=== PATIENT | female | born 1975 | race African-American/Black ===

== ENCOUNTER 2022-03-08 20:26 | Inpatient (IN) | payer BC ==
[~2022-03-08] VITALS: Ht 172.7 cm; Wt 68.9 kg
--- NOTE | 2022-03-08 20:26 | NUR ---
Dr. Melendez at bedside for MSE.
[2022-03-08] MEDS ORDERED: levETIRAcetam IV 500 MG in IV DEXTROSE 5% 100 ML IV ONE (20:45)
[2022-03-08] MEDS ORDERED: LORAZEPAM 2 MG/1 ML VIAL IV ONE (20:45)
[2022-03-08 20:56] LABS: HEMATOCRIT 30.8 % (31.2-41.9); MEAN CORPUSCULAR HEMOGLOBIN 30.6 uug (24.7-32.8); MEAN CORPUSCULAR VOLUME 96.4 fL (75.5-95.3); PLATELET COUNT (AUTO) 440 K/uL (179-408)
[2022-03-08] MEDS ORDERED: LORAZEPAM 2 MG/1 ML VIAL ONE (21:01)
[2022-03-08] MEDS ORDERED: levETIRAcetam 500 MG/5 ML VIAL IV ONE (21:03)
--- NOTE | 2022-03-08 21:10 | NUR ---
Xray at bedside.
[2022-03-08 21:13] LABS: ALANINE AMINOTRANSFERASE 49 U/L (14-59); ALKALINE PHOSPHATASE 185 U/L (50-136); ASPARTATE AMINOTRANSFERASE 8 U/L (15-37); BILIRUBIN,DIRECT < 0.1 mg/dL (0.0-0.2); BILIRUBIN,TOTAL 0.2 mg/dL (0.2-1.0); CARBON DIOXIDE 30 mmol/L (21-32); CHLORIDE 110 mmol/L (98-107); CREATININE 0.4 mg/dL (0.6-1.3); GLUCOSE 73 mg/dL (74-106); POTASSIUM 3.5 mmol/L (3.5-5.1); TOTAL PROTEIN, SERUM 5.6 g/dL (6.4-8.2); UREA NITROGEN, BLOOD 9 mg/dL (7-18)
[2022-03-08 21:20] LABS: THYROID STIMULATING HORMONE 2.644 mIU/mL (0.358-3.740)
[2022-03-08] MEDS ORDERED: IV NORMAL SALINE 1000 ML BAG IV ONE (21:30)
--- NOTE | 2022-03-08 21:30 | NUR ---
Pt out of ER for CT, accompanied pt to radiology.
--- NOTE | 2022-03-08 21:45 | NUR ---
Pt back to ER from CT.
[2022-03-08] MEDS ORDERED: PIPERACILLIN/TAZOBACTAM/D5W 50 ML IV ONE (22:29)
[2022-03-08] MEDS ORDERED: PIPERACILLIN SODIUM/TAZOBACTAM 3.375 G in IV DEXTROSE 5% 50 ML IV ONE (22:30)
[2022-03-08] MEDS ORDERED: CHLO473M3 PO (22:52)
[2022-03-08] MEDS ORDERED: NA P133E RC (22:52)
[2022-03-08] MEDS ORDERED: AMLO-212 GT (22:52)
[2022-03-08] MEDS ORDERED: IPRA4AER IH (22:52)
[2022-03-08] MEDS ORDERED: ENOX40DI SUBCUT (22:52)
[2022-03-08] MEDS ORDERED: ACET-2154 GT (22:52)
[2022-03-08] MEDS ORDERED: MULT-594 GT (22:52)
[2022-03-08] MEDS ORDERED: FERR325T28 GT (22:52)
[2022-03-08] MEDS ORDERED: PANT40TA2 GT (22:52)
[2022-03-08] MEDS ORDERED: MIDO5TAB5 GT (22:52)
[2022-03-08] MEDS ORDERED: FLUD0.1T GT (22:52)
[2022-03-08] MEDS ORDERED: IPRA12.9 INH (22:52)
[2022-03-08] MEDS ORDERED: MV-M1TAB18 GT (22:52)
[2022-03-08] MEDS ORDERED: AMOX-430 GT (22:52)
[2022-03-08] MEDS ORDERED: CLON0.1T PO (22:52)
[2022-03-08] MEDS ORDERED: BISA10SU61 RC (22:52)
[2022-03-08] MEDS ORDERED: LEVE1000 GT (22:52)
[2022-03-08] MEDS ORDERED: METO-295 GT (22:52)
[2022-03-08] MEDS ORDERED: DOCU100C36 GT (22:52)
--- NOTE | 2022-03-08 23:10 | NUR ---
Dr. Melendez on panel call with Norma Sam FLATWORK WASHER. Patient accepted for admission to [facility], diagnosis: pneumonia, seizure, bradycardia
[2022-03-08] MEDS ORDERED: REMEDY ESSENTIAL ZINC PASTE 113 GM TP PRN (23:15)
[2022-03-08] MEDS ORDERED: MAGNESIUM HYDROXIDE 30 ML LIQUID UDC PO PRN (23:15)
[2022-03-08] MEDS ORDERED: FLEET ENEMA 133 ML BOTTLE RC PRN (23:15)
[2022-03-08] MEDS ORDERED: BISACODYL 10 MG SUPP.RECT RC PRN (23:15)
[2022-03-08] MEDS ORDERED: ACETAMINOPHEN 325 MG TABLET PO PRN (23:15)
[2022-03-08] MEDS ORDERED: ACETAMINOPHEN 325 MG TABLET-SA PATIENTS-PAIN ONLY GT SCH (23:15)
[2022-03-08] MEDS ORDERED: ONDANSETRON 4 MG/2 ML VIAL IV PRN (23:15)
[2022-03-09] VITALS (20 sets, daily range): BP systolic 92–148; BP diastolic 49–72
--- NOTE | 2022-03-09 00:34 | NUR ---
Report given to Angélica ROGERS Tele.
--- NOTE | 2022-03-09 00:45 | NUR ---
Patient was admitted to tele floor under [facility], patient eyes open but non verbal, with trach with setting as ordered, patient sinus bradycardic 33, temp 90.7 rectally, saturation 100%, patient appears severely septic, Notify Scot Hogan and ordered to transfer patient to CC status. Patient was transfer back to CC/ER unit.
[2022-03-09] MEDS ORDERED: VANCOMYCIN IV 1,500 MG in IV DEXTROSE 5% 500 ML IV ONE (01:00)
[2022-03-09] MEDS ORDERED: IPRATROPIUM BROMIDE 0.5 MG/2.5 ML NEBU ONE ×4 (02:30→20:00)
[2022-03-09] MEDS: IPRATROPIUM BROMIDE 0.5 MG/2.5 ML NEBU NEB SCH ×4 (02:40→20:54)
--- NOTE | 2022-03-09 02:42 | NUR ---
CALLED APROX. 20:37, PT BROUGHT IN BY RESCUE, WITH PORTEX 8 TRACH ON VENT, RT TAKING OVER , PT PLACED ON STERLING VENT WITH SETTINGS, A/C 18, 450ML, PEEP5, TITRATE FIO2 @ 35%, SAT 98%,MOSTLY WITH CONTROLLED VENTILATION, PINKISH TINGE SECRETIONS, CHECK UFF, TRANSPORT TO CT/SCAN AND BACK TO ER, THEN TAKEN TO 31O, RT ASSIST, THEN LOW HR, TAKEN BACK TO ER WITH RT ASSIST, PT VERY COLD TEMP.Trip HANSEN SUBSTATION ELECTRICIAN SUPERVISOR Addendum: 03/09/22 at 0246 by ANGELA HANSEN RT Amended: Links added.
[2022-03-09 03:22] LABS: MAGNESIUM 1.5 mg/dL (1.8-2.4)
[2022-03-09 04:36] LABS: THYROID STIMULATING HORMONE 2.933 mIU/mL (0.358-3.740)
[2022-03-09] MEDS ORDERED: METOCLOPRAMIDE HCL 10 MG TABLET ONE ×4 (05:10→20:19)
[2022-03-09] MEDS ORDERED: MEROPENEM 500MG/NS 50ML PB ***ER PYXIS ONLY IV ONE (05:10)
[2022-03-09 05:21] LABS: HEMATOCRIT 28.2 % (31.2-41.9); MEAN CORPUSCULAR VOLUME 95.1 fL (75.5-95.3); PLATELET COUNT (AUTO) 351 K/uL (179-408)
[2022-03-09 05:22] LABS: CARBON DIOXIDE 27 mmol/L (21-32); CHLORIDE 110 mmol/L (98-107); CREATININE 0.4 mg/dL (0.6-1.3); GLUCOSE 74 mg/dL (74-106); MAGNESIUM 1.3 mg/dL (1.8-2.4); PHOSPHOROUS 4.8 mg/dL (2.5-4.9); POTASSIUM 3.6 mmol/L (3.5-5.1); UREA NITROGEN, BLOOD 8 mg/dL (7-18)
[2022-03-09] MEDS ORDERED: FLEET ENEMA 133 ML BOTTLE RC PRN (05:51)
[2022-03-09] MEDS ORDERED: ACETAMINOPHEN 650 MG/20.3 ML LIQUID UDC PO PRN (06:00)
[2022-03-09] MEDS ORDERED: MEROPENEM 1 G in IV NORMAL SALINE 100 ML IV SCH (06:00)
[2022-03-09] MEDS: METOCLOPRAMIDE HCL 10 MG TABLET GT SCH ×3 (06:00→20:22)
[2022-03-09] MEDS: PANTOPRAZOLE ORAL SUSPENSION 40 MG SUSPDR.PKT GT SCH (06:00)
[2022-03-09] MEDS ORDERED: MIDODRINE HCL 2.5 MG TABLET PO SCH (06:00)
[2022-03-09] MEDS ORDERED: LORAZEPAM 2 MG/1 ML VIAL IV STA (06:07)
[2022-03-09] MEDS ORDERED: LORAZEPAM 2 MG/1 ML VIAL ONE (06:09)
[2022-03-09] MEDS ORDERED: levETIRAcetam 500 MG/5 ML VIAL IV ONE (06:11)
[2022-03-09] MEDS ORDERED: levETIRAcetam IV 1,000 MG in IV DEXTROSE 5% 100 ML IV SCH ×2 (06:15→18:00)
[2022-03-09] MEDS ORDERED: POTASSIUM BICARBONATE/CIT AC 25 MEQ TABLET.EFF MC ONE (06:45)
[2022-03-09] MEDS ORDERED: POTASSIUM BICARBONATE/CIT AC 25 MEQ TABLET.EFF ONE (07:06)
[2022-03-09] MEDS ORDERED: MAGNESIUM SULFATE/D5W 100 ML ONE (07:06)
[2022-03-09] MEDS: MAGNESIUM SULFATE/D5W 100 ML IV SCH ×2 (07:14→08:26)
--- NOTE | 2022-03-09 07:25 | NUR ---
Received pt. from Registry R.N. on cardiac monitoring NST rate in the 60's-70's sbp above 90's. patient hypothermic temperature of 95.8 on bear hugger. Portex #8, A/C 18, Tv 450, Peep +5, FIO2 35%. ML to RUE patent. with orders to continue with magnesium replacement. Will continue to monitor.
[2022-03-09] MEDS ORDERED: DOCUSATE SODIUM 100 MG/10 ML LIQUID UDC ONE (07:49)
[2022-03-09] MEDS ORDERED: MAGNESIUM SULFATE/D5W 300 ML ONE (07:55)
[2022-03-09] MEDS: VANCOMYCIN IV 1,000 MG in IV DEXTROSE 5% 250 ML IV SCH ×2 (08:00→20:22)
[2022-03-09 08:34] LABS: *BILIRUBIN,URIN NEGATIVE (NEGATIVE); *BLOOD, URINE NEGATIVE (NEGATIVE); *CLARITY,URINE CLEAR (CLEAR); *COLOR,URINE YELLOW (YELLOW); *KETONES,URINE NEGATIVE (NEGATIVE); *UROBILINOGEN,URINE 0.2 E.U./dl (NORMAL); LEUKOCYTE ESTERASE ,URINE 1+ (NEGATIVE); NITRITE, URINE NEGATIVE (NEGATIVE); PH,URINE 6.5 (5.0-8.0); UGLUCOSE NEGATIVE (NEGATIVE)
[2022-03-09] MEDS ORDERED: DOCUSATE SODIUM 100 MG CAPSULE PO SCH (09:00)
[2022-03-09] MEDS ORDERED: PANTOPRAZOLE SODIUM 40 MG TABLET.DR PO SCH (09:00)
[2022-03-09] MEDS ORDERED: levETIRAcetam 500 MG TABLET GT SCH (09:00)
[2022-03-09] MEDS ORDERED: AMLODIPINE 5 MG TABLET GT SCH (09:00)
[2022-03-09 09:03] LABS: BACTERIA,URINE FEW /HPF (NONE SEEN); RBC,URINE 0-3 /HPF (0-3); SQUAMOUS EPITHELIAL CELL,UR FEW /HPF (NONE SEEN)
[2022-03-09] MEDS: DOCUSATE SODIUM 100 MG/10 ML LIQUID UDC GT SCH (09:23)
[2022-03-09] MEDS: CHLORHEXIDINE GLUCONATE 15 ML MOUTHWASH MM SCH ×2 (09:23→16:48)
[2022-03-09] MEDS ORDERED: FLUDROCORTISONE ACETATE 0.1 MG TABLET ONE (09:50)
[2022-03-09] MEDS: MULTIVITAMINS,THERAPEUTIC TABLET GT SCH (09:50)
[2022-03-09] MEDS: FLUDROCORTISONE ACETATE 0.1 MG TABLET GT SCH (09:50)
[2022-03-09] MEDS ORDERED: MIDODRINE HCL 5 MG TABLET GT SCH (10:30)
[2022-03-09] MEDS: MIDODRINE HCL 2.5 MG TABLET GT SCH ×3 (10:30→17:06)
--- NOTE | 2022-03-09 11:20 | NUR ---
Patient seen by aluminizer Dr. Barba, report given and orders for chest X-ray and ABG for 03/10/22 received.
[2022-03-09] MEDS ORDERED: MIDODRINE HCL 5 MG TABLET ONE (14:12)
[2022-03-09] MEDS: MEROPENEM 1 G in IV NORMAL SALINE 100 ML IV SCH ×2 (14:27→22:42)
--- NOTE | 2022-03-09 15:00 | NUR ---
Patient back from procedure right chest tube noted to have leaking, will continue to monitor. Addendum: 03/09/22 at 1821 by SAMEER CARLISLE RN The above note is intended for another patient, user error.
--- NOTE | 2022-03-09 16:30 | NUR ---
Patient seen by attending physician Dr. Adame.
--- NOTE | 2022-03-09 18:16 | NUR ---
Left pt. on cardiac monitoring NST rate in the 60's-80's sbp within desired limits no support of vasopressors. Afebrile and no hypothermia off bear hugger since 1500 . Portex #8, A/C 18, Tv 450, Peep +5, FIO2 35%, with saturation of 98-99%. PICC line patent. Rosales to gravity adequate urine output. Will endorse care to incoming R.N.
[2022-03-09] MEDS ORDERED: MEROPENEM 1GM/NS 100ML IVPB **ER PYXIS ONLY IV ONE (20:19)
[2022-03-09 22:18] LABS: *BILIRUBIN,URIN NEGATIVE (NEGATIVE); *BLOOD, URINE NEGATIVE (NEGATIVE); *CLARITY,URINE CLEAR (CLEAR); *COLOR,URINE YELLOW (YELLOW); *KETONES,URINE NEGATIVE (NEGATIVE); *UROBILINOGEN,URINE 0.2 E.U./dl (NORMAL); LEUKOCYTE ESTERASE ,URINE NEGATIVE (NEGATIVE); NITRITE, URINE NEGATIVE (NEGATIVE); PH,URINE 7.5 (5.0-8.0); UGLUCOSE NEGATIVE (NEGATIVE)
[2022-03-10] VITALS (21 sets, daily range): BP systolic 96–134; BP diastolic 58–82
[2022-03-10] MEDS ORDERED: IPRATROPIUM BROMIDE 0.5 MG/2.5 ML NEBU ONE ×4 (01:57→19:17)
[2022-03-10] MEDS: IPRATROPIUM BROMIDE 0.5 MG/2.5 ML NEBU NEB SCH ×4 (02:39→20:37)
--- NOTE | 2022-03-10 03:58 | NUR ---
PATIENT ON CONT STERLING VENT WITH PORTEX # [address] AND SECURED, CHANGE HME AND SCHWAB, SUCTIONED LIGHT PALE YELL TINGE SECRETIONS, GOOD COUGH REFLEX, PT DOES NOT RESPONSE TO VERBAL COMMANDS, VENT SETTINGS, A/C18,450ML,, PEEP5, FIO2 @ 35%, SAT 97-98% , ALL VENT ALARMS GOOD, VENT PLUGGED INTO RED WALL OUTLET, AMBU BAG AT BEDSIDE, NO VENT CHANGES MADE, NO ABG ORDER FOR AM, NEB INLINE X 2 WITH ATROVENT, TOLL WELL. Trip HANSEN RCP Addendum: 03/10/22 at 0401 by ANGELA HANSEN RT Amended: Links added.
[2022-03-10 04:56] LABS: HEMATOCRIT 26.3 % (31.2-41.9); MEAN CORPUSCULAR HEMOGLOBIN 31.3 uug (24.7-32.8); MEAN CORPUSCULAR VOLUME 94.3 fL (75.5-95.3); PLATELET COUNT (AUTO) 361 K/uL (179-408)
[2022-03-10 05:13] LABS: ALANINE AMINOTRANSFERASE 42 U/L (14-59); ALKALINE PHOSPHATASE 173 U/L (50-136); ASPARTATE AMINOTRANSFERASE 12 U/L (15-37); BILIRUBIN,TOTAL 0.3 mg/dL (0.2-1.0); CARBON DIOXIDE 29 mmol/L (21-32); CHLORIDE 110 mmol/L (98-107); CHOLESTEROL 172 mg/dL (<200); CREATININE 0.4 mg/dL (0.6-1.3); GLUCOSE 69 mg/dL (74-106); HDL CHOLESTEROL 53 mg/dL (40-60); MAGNESIUM 1.8 mg/dL (1.8-2.4); PHOSPHOROUS 4.4 mg/dL (2.5-4.9); POTASSIUM 3.4 mmol/L (3.5-5.1); TOTAL PROTEIN, SERUM 5.1 g/dL (6.4-8.2); TRIGLYCERIDES 79 MG/DL (30-150); UREA NITROGEN, BLOOD 5 mg/dL (7-18)
[2022-03-10] MEDS ORDERED: MEROPENEM 1GM/NS 100ML IVPB **ER PYXIS ONLY IV ONE (06:14)
[2022-03-10] MEDS: PANTOPRAZOLE ORAL SUSPENSION 40 MG SUSPDR.PKT GT SCH (06:15)
[2022-03-10] MEDS: MEROPENEM 1 G in IV NORMAL SALINE 100 ML IV SCH ×3 (06:16→21:44)
--- NOTE | 2022-03-10 07:15 | NUR ---
Received. pt. on ventilator Portex 8 A/C 18, Tv 450, Peep +5, FIO2 35%. No respiratory distress, petit mall seizures noted, facial eye and face twitching. Hemodynamically stable sbp within desired limits. Neuro-kaur remains semi-comatose. Peg in place. fuentes to gravity. Will continue with care plan.
[2022-03-10 07:57] LABS: ABG BASE EXCESS 1.8 mmol/L; ABG HCO3 23.4 mmol/L; ABG PCO2 26.9 mmHg (35.0-45.0); ABG PH 7.558 (7.350-7.450); ABG PO2 98.1 mmHg (75.0-100.0); ABG SITE LEFT RADIAL; ABG TOTAL HEMOGLOBIN 9.7 G/dL (12.0-16.0); COHb 0.2 % (0.5-1.5); MetHb 0.3 % (0.0-1.5); O2Hb 97.3 % (94.0-97.0); VENT MODE VENT - A/C; VT, ABG 450 mL
[2022-03-10] MEDS: MULTIVITAMINS,THERAPEUTIC TABLET GT SCH (08:41)
[2022-03-10] MEDS: CHLORHEXIDINE GLUCONATE 15 ML MOUTHWASH MM SCH ×2 (08:41→16:39)
[2022-03-10] MEDS: DOCUSATE SODIUM 100 MG/10 ML LIQUID UDC GT SCH (08:41)
[2022-03-10] MEDS: MIDODRINE HCL 2.5 MG TABLET GT SCH ×3 (08:41→16:49)
[2022-03-10] MEDS: FLUDROCORTISONE ACETATE 0.1 MG TABLET GT SCH (08:41)
[2022-03-10] MEDS ORDERED: DOCUSATE SODIUM 100 MG/10 ML LIQUID UDC ONE (08:47)
[2022-03-10] MEDS ORDERED: levETIRAcetam 500 MG/5 ML LIQUID UDC ONE ×2 (08:47→20:59)
[2022-03-10] MEDS ORDERED: FLUDROCORTISONE ACETATE 0.1 MG TABLET ONE (08:48)
[2022-03-10] MEDS ORDERED: levETIRAcetam 500 MG/5 ML LIQUID UDC NG SCH (09:00)
--- NOTE | 2022-03-10 09:41 | NUR ---
Patient seen by pulmonary services, Dr. Barba. No new orders received.
[2022-03-10] MEDS: VANCOMYCIN IV 1,000 MG in IV DEXTROSE 5% 250 ML IV SCH ×2 (09:51→22:14)
[2022-03-10] MEDS ORDERED: POTASSIUM CHLORIDE 20 MEQ POWDER PACKET GT ONE (10:15)
[2022-03-10] MEDS ORDERED: LORAZEPAM 2 MG/1 ML VIAL IV PRN (10:30)
[2022-03-10] MEDS ORDERED: levETIRAcetam IV 500 MG in IV DEXTROSE 5% 100 ML IV ONE (11:00)
[2022-03-10] MEDS ORDERED: POTASSIUM CHLORIDE 20 MEQ POWDER PACKET ONE (11:02)
[2022-03-10] MEDS: CHOLECALCIFEROL 1,000 UNIT TABLET GT SCH (14:35)
[2022-03-10] MEDS ORDERED: CHOLECALCIFEROL 1,000 UNIT TABLET ONE (14:35)
--- NOTE | 2022-03-10 14:36 | NUR ---
Patient trache to vent no special attachment available to administer.
--- NOTE | 2022-03-10 15:00 | NUR ---
Patient with second episode of seizure activity lasting more than 3 minutes Deep notified.
[2022-03-10] MEDS ORDERED: LORAZEPAM 2 MG/1 ML VIAL ONE (15:04)
--- NOTE | 2022-03-10 15:25 | NUR ---
EGG done and a call from [facility] neurologist received. orders for dilantin 1 gram IV to be given now and 200mg IV Q8H. received.
[2022-03-10] MEDS ORDERED: PHENYTOIN SODIUM IV 1,000 MG in IV NORMAL SALINE 100 ML IV ONE (16:00)
--- NOTE | 2022-03-10 16:41 | NUR ---
Attending physician Dr. Adame in the unit o see and examine pt, SBP in the mid-70's orders for 500 cc bolus of NS if sbp remains low.
[2022-03-10] MEDS ORDERED: IV NORMAL SALINE 500 ML IV ONE (17:00)
--- NOTE | 2022-03-10 18:54 | NUR ---
Left pt. resting comfortably no seizure activity noted after dilating administered. Hemodynamically stable sbp within desired limits post bolus 500cc as ordered. Hypothermic on bear hugger. Remains on ventilator no changes from this am. saturation 0f 98-99%. No resp. distress.
--- NOTE | 2022-03-10 20:00 | NUR ---
SHORT STAFF IN THE ER. ONLY 2 ER NURSE SCHEDULED IN THE ER WITH NO ICU NURSE. Patient in room 1a due to no ICU staff. Patient on vent with setting of A/C 18, tidal volume 450, PEEP 5, FIO@ 35% with Portex 8. Has triple lumen PiccLine on RUE patent upon assessment and dressing clean and intact. Rosales draining clear yellow urine.
--- NOTE | 2022-03-10 20:05 | NUR ---
Patient on a BEAR HUGGER.
[2022-03-10] MEDS ORDERED: levETIRAcetam 250 MG TABLET ONE (20:56)
[2022-03-10] MEDS ORDERED: PHENYTOIN SODIUM 100 MG/2 ML VIAL IV ONE (20:56)
[2022-03-10] MEDS: levETIRAcetam 500 MG/5 ML LIQUID UDC GT SCH (21:02)
[2022-03-10] MEDS: PHENYTOIN SODIUM 100 MG/2 ML VIAL IV SCH (21:42)
[2022-03-11] VITALS (24 sets, daily range): BP systolic 86–125; BP diastolic 51–82
[2022-03-11] MEDS ORDERED: IPRATROPIUM BROMIDE 0.5 MG/2.5 ML NEBU ONE ×4 (00:36→19:43)
[2022-03-11] MEDS: IPRATROPIUM BROMIDE 0.5 MG/2.5 ML NEBU NEB SCH ×4 (00:39→19:54)
--- NOTE | 2022-03-11 04:00 | NUR ---
PATIENT REMAINS ON STERLING VENT WITH TRACH IN PLACE, NO VENT CHANGES MADE, SUCTION PRN, NO VERBAL RESPONSE, CLEAN TRACH, SAT 98%, HR 70 APPROX, NO ABG ORDER FOR AM, WILL MONITOR Q2, VENT SETTINGS, A/C 18,450ML, PEEP5, FIO2 @ 35%.D TYRONE AGUILERA Addendum: 03/11/22 at 0403 by ANGELA HANSEN RT Amended: Links added.
--- NOTE | 2022-03-11 04:03 | NUR ---
PT ALSO HAD Q6 NEB INLINE WITH APOORVA WADE, ON STERLING GUILLE HANSEN CAR PARKER Addendum: 03/11/22 at 0404 by ANGELA HANSEN RT Amended: Links added.
[2022-03-11 05:01] LABS: CARBON DIOXIDE 25 mmol/L (21-32); CHLORIDE 111 mmol/L (98-107); CREATININE 0.5 mg/dL (0.6-1.3); GLUCOSE 66 mg/dL (74-106); MAGNESIUM 1.6 mg/dL (1.8-2.4); PHOSPHOROUS 4.1 mg/dL (2.5-4.9); POTASSIUM 3.3 mmol/L (3.5-5.1); UREA NITROGEN, BLOOD 4 mg/dL (7-18)
[2022-03-11 05:06] LABS: HEMATOCRIT 28.7 % (31.2-41.9); MEAN CORPUSCULAR VOLUME 94.3 fL (75.5-95.3); PLATELET COUNT (AUTO) 327 K/uL (179-408)
[2022-03-11] MEDS: PANTOPRAZOLE ORAL SUSPENSION 40 MG SUSPDR.PKT GT SCH (06:44)
[2022-03-11] MEDS ORDERED: PHENYTOIN SODIUM 100 MG/2 ML VIAL IV ONE ×2 (06:45→20:53)
[2022-03-11] MEDS: PHENYTOIN SODIUM 100 MG/2 ML VIAL IV SCH ×3 (06:56→21:05)
[2022-03-11] MEDS: MEROPENEM 1 G in IV NORMAL SALINE 100 ML IV SCH ×3 (06:56→21:05)
--- NOTE | 2022-03-11 07:20 | NUR ---
Received pt. on ventilator Portex #8, A/C 18, Tv 450 Peep+5 FIO2 35%., Hemodynamically stable sbp within normal.Neuro-kaur remains comatose, with no seizure activity noted. Rosales to gravity. Will continue to monitor.
[2022-03-11] MEDS ORDERED: levETIRAcetam 500 MG/5 ML LIQUID UDC ONE ×2 (08:34→20:53)
[2022-03-11] MEDS ORDERED: DOCUSATE SODIUM 100 MG/10 ML LIQUID UDC ONE (08:34)
[2022-03-11] MEDS ORDERED: CHOLECALCIFEROL 1,000 UNIT TABLET ONE (08:34)
[2022-03-11] MEDS ORDERED: FLUDROCORTISONE ACETATE 0.1 MG TABLET ONE (08:35)
[2022-03-11] MEDS: FLUDROCORTISONE ACETATE 0.1 MG TABLET GT SCH (08:36)
[2022-03-11] MEDS: DOCUSATE SODIUM 100 MG/10 ML LIQUID UDC GT SCH (08:36)
[2022-03-11] MEDS: levETIRAcetam 500 MG/5 ML LIQUID UDC GT SCH ×2 (08:36→21:04)
[2022-03-11] MEDS ORDERED: POTASSIUM CHLORIDE 20 MEQ POWDER PACKET GT ONE (08:45)
--- NOTE | 2022-03-11 08:45 | NUR ---
Pulmonary services, Dr. Guerrero in the unit to follow up on pt. report given, and orders to continue with care plan received.
[2022-03-11] MEDS: CHLORHEXIDINE GLUCONATE 15 ML MOUTHWASH MM SCH ×2 (08:46→17:20)
[2022-03-11] MEDS: CHOLECALCIFEROL 1,000 UNIT TABLET GT SCH (08:46)
[2022-03-11] MEDS: MULTIVITAMINS,THERAPEUTIC TABLET GT SCH (08:46)
[2022-03-11] MEDS: MIDODRINE HCL 2.5 MG TABLET GT SCH ×3 (08:46→17:31)
[2022-03-11] MEDS ORDERED: MAGNESIUM SULFATE/D5W 300 ML ONE (08:51)
[2022-03-11] MEDS ORDERED: POTASSIUM CHLORIDE 200 ML ONE (08:51)
[2022-03-11] MEDS ORDERED: POTASSIUM CHLORIDE 20 MEQ POWDER PACKET ONE (08:52)
[2022-03-11] MEDS: MAGNESIUM SULFATE/D5W 100 ML IV SCH ×3 (08:54→10:45)
[2022-03-11] MEDS: POTASSIUM CHLORIDE 50 ML IV SCH ×4 (08:54→16:21)
--- NOTE | 2022-03-11 09:00 | NUR ---
Cardiology services, Dr. Lawton in the unit to examine pt. report given. potassium, mg, replacement in progress. Orders to continue with care plan.
--- NOTE | 2022-03-11 15:20 | NUR ---
A call from Director Of Business Systems, called answered by ER. ROGERS. And I was inform that orders were in for tube-feeding. 20 minutes later when reviewing orders no orders observed. Addendum: 03/11/22 at 1821 by SAMEER CARLISLE RN Dr. dAame informed of recommendation.
[2022-03-11] MEDS ORDERED: ALBUTEROL SULFATE 2.5 MG/3 ML NEBU ONE (19:43)
[2022-03-11] MEDS ORDERED: VITAL AF 1.2 1,000 ML LIQUID GT PRN (20:30)
--- NOTE | 2022-03-11 21:43 | NUR ---
Attending Dr. Adame in the unit to see and examine pt. report given orders to continue with care plan received.
[2022-03-12] VITALS (23 sets, daily range): BP systolic 90–111; BP diastolic 6–76
[2022-03-12] MEDS ORDERED: IPRATROPIUM BROMIDE 0.5 MG/2.5 ML NEBU ONE ×4 (01:03→19:58)
[2022-03-12] MEDS: IPRATROPIUM BROMIDE 0.5 MG/2.5 ML NEBU NEB SCH ×4 (01:09→20:00)
[2022-03-12 04:55] LABS: HEMATOCRIT 30.4 % (31.2-41.9); MEAN CORPUSCULAR HEMOGLOBIN 30.6 uug (24.7-32.8); MEAN CORPUSCULAR VOLUME 95.6 fL (75.5-95.3); PLATELET COUNT (AUTO) 314 K/uL (179-408)
[2022-03-12 05:02] LABS: CARBON DIOXIDE 24 mmol/L (21-32); CHLORIDE 112 mmol/L (98-107); CREATININE 0.5 mg/dL (0.6-1.3); GLUCOSE 79 mg/dL (74-106); MAGNESIUM 2.1 mg/dL (1.8-2.4); PHOSPHOROUS 3.9 mg/dL (2.5-4.9); POTASSIUM 3.7 mmol/L (3.5-5.1); UREA NITROGEN, BLOOD 4 mg/dL (7-18)
[2022-03-12] MEDS ORDERED: PHENYTOIN SODIUM 100 MG/2 ML VIAL IV ONE ×3 (05:16→22:36)
[2022-03-12] MEDS: PANTOPRAZOLE ORAL SUSPENSION 40 MG SUSPDR.PKT GT SCH (05:20)
[2022-03-12] MEDS ORDERED: MEROPENEM 1GM/NS 100ML IVPB **ER PYXIS ONLY IV ONE (05:20)
[2022-03-12] MEDS: MEROPENEM 1 G in IV NORMAL SALINE 100 ML IV SCH ×3 (05:21→22:31)
[2022-03-12] MEDS: PHENYTOIN SODIUM 100 MG/2 ML VIAL IV SCH ×3 (05:21→22:39)
[2022-03-12] MEDS ORDERED: PROPOFOL 100 ML ONE (05:37)
[2022-03-12 05:53] LABS: ABG BASE EXCESS -0.1 mmol/L; ABG HCO3 22.8 mmol/L; ABG PCO2 31.4 mmHg (35.0-45.0); ABG PH 7.478 (7.350-7.450); ABG PO2 137.5 mmHg (75.0-100.0); ABG SITE RIGHT RADIAL; ABG TOTAL HEMOGLOBIN 11.6 G/dL (12.0-16.0); COHb 0.4 % (0.5-1.5); MetHb 0.3 % (0.0-1.5); O2Hb 98.3 % (94.0-97.0); VENT MODE VENT - A/C; VT, ABG 450 mL
[2022-03-12] MEDS: CHLORHEXIDINE GLUCONATE 15 ML MOUTHWASH MM SCH ×2 (09:00→12:25)
[2022-03-12] MEDS: DOCUSATE SODIUM 100 MG/10 ML LIQUID UDC GT SCH (09:00)
[2022-03-12] MEDS: FLUDROCORTISONE ACETATE 0.1 MG TABLET GT SCH (09:00)
[2022-03-12] MEDS ORDERED: MIDODRINE HCL 2.5 MG TABLET GT SCH (09:00)
[2022-03-12] MEDS: MIDODRINE HCL 5 MG TABLET GT SCH ×3 (09:00→17:00)
[2022-03-12] MEDS: MULTIVITAMINS,THERAPEUTIC TABLET GT SCH ×2 (09:00→12:30)
[2022-03-12] MEDS: levETIRAcetam 500 MG/5 ML LIQUID UDC GT SCH ×2 (09:00→21:00)
--- NOTE | 2022-03-12 09:28 | NUR ---
recieved call from [employer], reports that pt has Acinetobacter. This information was endorse to ICU nurse/House Sup Camila ROGERS.
--- NOTE | 2022-03-12 09:30 | NUR ---
Received pt. in bed restinr. Eyes open R eye ptosis. Pt is unresponsive to command ; responds to painful stimuli. Pt tolerating vent settingon ventilator Portex #8, A/C 14, Tv 450 Peep+5 FIO2 35%., Hemodynamically stable WNL, with no seizure activity noted. Rosales to gravity. Will continu TREVER PICC in place. B/L arms with scattered resh and pus like cluster leision in the left palm. sursin suoervisor aware if reoot of acinotebacter report. Safety maintain, Seizure precaution maintained. Side rails uo x 4.
[2022-03-12] MEDS ORDERED: FLUDROCORTISONE ACETATE 0.1 MG TABLET ONE (11:16)
[2022-03-12] MEDS ORDERED: DOCUSATE SODIUM 100 MG/10 ML LIQUID UDC ONE (11:16)
--- NOTE | 2022-03-12 11:30 | NUR ---
PT SEEN BY richar JUAREZ TODAY AND AIRBORNE ISOLATION IS BEING ORERED TO R/O YANCY. wILL SEND SPECIME TO LAB ORDERED. PATIENT HAS LEISION ON THE FORARM AND THE l PALM HAS PUSS FORMED IN CLUSTER. Pt I SASLEEP o2sat 100 ON ROOM AIR.
[2022-03-12] MEDS ORDERED: levETIRAcetam 500 MG/5 ML LIQUID UDC ONE (12:18)
[2022-03-12] MEDS ORDERED: CHOLECALCIFEROL 1,000 UNIT TABLET ONE (12:19)
[2022-03-12] MEDS: CHOLECALCIFEROL 1,000 UNIT TABLET GT SCH (12:32)
[2022-03-12] MEDS ORDERED: MEROPENEM 1 G VIAL IV ONE (12:44)
[2022-03-12] MEDS ORDERED: ACYCLOVIR 500 MG VIAL IV ONE (12:45)
[2022-03-12] MEDS: ACYCLOVIR IV 500 MG in IV DEXTROSE 5% 100 ML IV SCH ×2 (13:07→22:32)
--- NOTE | 2022-03-12 16:03 | NUR ---
Diietary reecomendation that tube feeding, VitaL AF 1,2 AT 20/ML/HR FOR A GOAL OF 70 NOTEDF IN PATIENT'[S MEDICAL RECORD. RESUME AT THIS TIME.Tube feed resume as ordered..
--- NOTE | 2022-03-12 16:07 | NUR ---
Dilantin administerd as ordered,
[2022-03-12] MEDS ORDERED: MIDODRINE HCL 5 MG TABLET ONE (16:09)
--- NOTE | 2022-03-12 17:08 | NUR ---
Specimen resent to lab. to r/o varicella virus as ordered.Patient is restting and is waiting for transfer to [facility] per the nursing supervisor backfilling for highr level ofd care. As per nursing supervisr on day shift no isolation [id number] is inhouse.
--- NOTE | 2022-03-12 17:20 | NUR ---
Pt remains stable trach to vent on cmv, spo2 and respirations wnl. No vent changes made today. HHN tx's tolerated well without adverse reaction. No signs or symptoms of resp. distress noted during shift. Will continue to monitor and follow current respiratory treatments as ordered.
--- NOTE | 2022-03-12 19:45 | NUR ---
END OF SHIFT REPORT GIVEN TO THE NIGHT NURSE. PT IS BEING PLACED ON AIRBORNE. TRANSFER PENDING BED ASSIGNE IS ASSIGNED BY THE NURSE SUPT.
[2022-03-13] VITALS (28 sets, daily range): BP systolic 81–114; BP diastolic 53–74
[2022-03-13] MEDS ORDERED: IPRATROPIUM BROMIDE 0.5 MG/2.5 ML NEBU ONE ×4 (01:07→21:13)
[2022-03-13 05:30] LABS: MEAN CORPUSCULAR HEMOGLOBIN 31.3 uug (24.7-32.8); MEAN CORPUSCULAR VOLUME 95.4 fL (75.5-95.3); PLATELET COUNT (AUTO) 234 K/uL (179-408)
[2022-03-13] MEDS ORDERED: PHENYTOIN SODIUM 100 MG/2 ML VIAL IV ONE ×3 (05:33→16:44)
[2022-03-13 05:58] LABS: ABG BASE EXCESS -0.8 mmol/L; ABG HCO3 23.1 mmol/L; ABG PCO2 35.4 mmHg (35.0-45.0); ABG PH 7.433 (7.350-7.450); ABG PO2 146.3 mmHg (75.0-100.0); ABG SITE RIGHT RADIAL; ABG TOTAL HEMOGLOBIN 10.6 G/dL (12.0-16.0); CPAP,BG 8 cmH20; MetHb 0.1 % (0.0-1.5); O2Hb 98.8 % (94.0-97.0); VENT MODE CPAP
[2022-03-13 06:01] LABS: CARBON DIOXIDE 24 mmol/L (21-32); CHLORIDE 110 mmol/L (98-107); CREATININE 0.4 mg/dL (0.6-1.3); GLUCOSE 98 mg/dL (74-106); MAGNESIUM 1.6 mg/dL (1.8-2.4); PHOSPHOROUS 3.6 mg/dL (2.5-4.9); POTASSIUM 3.1 mmol/L (3.5-5.1); UREA NITROGEN, BLOOD 6 mg/dL (7-18)
[2022-03-13] MEDS: PANTOPRAZOLE ORAL SUSPENSION 40 MG SUSPDR.PKT GT SCH (06:04)
[2022-03-13] MEDS: ACYCLOVIR IV 500 MG in IV DEXTROSE 5% 100 ML IV SCH ×3 (06:05→22:33)
[2022-03-13] MEDS: PHENYTOIN SODIUM 100 MG/2 ML VIAL IV SCH ×2 (06:05→17:43)
[2022-03-13] MEDS: IPRATROPIUM BROMIDE 0.5 MG/2.5 ML NEBU NEB SCH ×4 (08:07→20:51)
[2022-03-13] MEDS ORDERED: POTASSIUM CHLORIDE 20 MEQ POWDER PACKET GT ONE (09:00)
--- NOTE | 2022-03-13 09:30 | NUR ---
Suhas Andrade placed on patient to maintain her body temp for hypothermia. Rectal temp 90.1.Obtained order to bolus NS 500 ML, per Dr. Carpenter.
--- NOTE | 2022-03-13 09:50 | NUR ---
Dr Guerrero in to see pt. Patient unresponsive to tactile stimulus. DR Guerrero is aware. No seizure noted. Will continue to monitor. Dr Dr Carpenter paged to update. VS HR 55, BP 84/53. Potassium level 3.1,, mg 1.6. Blood glucose 91. HOB 30.
[2022-03-13] MEDS ORDERED: MAGNESIUM SULFATE/D5W 100 ML ONE ×4 (10:35→18:48)
[2022-03-13] MEDS ORDERED: POTASSIUM CHLORIDE 50 ML ONE ×3 (10:35→16:48)
[2022-03-13] MEDS ORDERED: MIDODRINE HCL 5 MG TABLET ONE ×4 (10:36→20:40)
[2022-03-13] MEDS ORDERED: POTASSIUM CHLORIDE 20 MEQ POWDER PACKET ONE (10:37)
[2022-03-13] MEDS ORDERED: DOCUSATE SODIUM 100 MG/10 ML LIQUID UDC ONE (10:50)
[2022-03-13] MEDS ORDERED: levETIRAcetam 500 MG/5 ML LIQUID UDC ONE (10:50)
[2022-03-13] MEDS: MAGNESIUM SULFATE/D5W 100 ML IV SCH ×4 (10:55→18:57)
[2022-03-13] MEDS: POTASSIUM CHLORIDE 50 ML IV SCH ×4 (10:56→18:57)
[2022-03-13] MEDS: DOCUSATE SODIUM 100 MG/10 ML LIQUID UDC GT SCH (10:57)
[2022-03-13] MEDS: levETIRAcetam 500 MG/5 ML LIQUID UDC GT SCH (10:57)
[2022-03-13] MEDS: MIDODRINE HCL 5 MG TABLET GT SCH ×3 (10:58→18:58)
[2022-03-13] MEDS ORDERED: IV NORMAL SALINE 500 ML BAG IV ONE (11:45)
[2022-03-13] MEDS: CHLORHEXIDINE GLUCONATE 15 ML MOUTHWASH MM SCH ×2 (12:13→17:47)
[2022-03-13] MEDS: MULTIVITAMINS,THERAPEUTIC TABLET GT SCH (13:00)
[2022-03-13] MEDS ORDERED: CHOLECALCIFEROL 1,000 UNIT TABLET ONE (13:32)
[2022-03-13] MEDS ORDERED: FLUDROCORTISONE ACETATE 0.1 MG TABLET ONE (13:33)
[2022-03-13] MEDS: CHOLECALCIFEROL 1,000 UNIT TABLET GT SCH (13:39)
[2022-03-13] MEDS: FLUDROCORTISONE ACETATE 0.1 MG TABLET GT SCH (13:41)
--- NOTE | 2022-03-13 15:15 | NUR ---
Hands off care of patient and REndorse relief RN status of patient. temp 93.5 Hypothermic blanket, set ar 38. Second bag of Magnesium and second bag of KCL are infuxing as ordered, via TREVER PICC. No adverse reaction noted.
--- NOTE | 2022-03-13 16:00 | NUR ---
Assume care of patient. Nursing asked to contact jeff Allison when Covid test available. r
--- NOTE | 2022-03-13 16:18 | NUR ---
Printed Circuit Boards Stripper Etcher called to inform the result for covid test. Call went o her voicemail Nursing Dental Office Receptionist Camila jarquined.
[2022-03-13] MEDS ORDERED: ACYCLOVIR 500 MG VIAL IV ONE (16:45)
--- NOTE | 2022-03-13 18:30 | NUR ---
PT TO BE D/X TO [facility] FOR HIGHER LEVEL OF CARE. SCRAPE GATHERER, LOCO Oliva, FOR A SBP OF 76. mag and potassium infusions completed as ordered. No adverse reaction noted and heart rhythm Sinus. Temp 04.[address]
--- NOTE | 2022-03-13 19:45 | NUR ---
END OG SHIFT REPORT ENDORSED TO GUME. PT REPORT TO BE CALLED TO GLENROY MALDONADO.. AND LOCO COLE PAGED TO INFORM OF SBP 76. HR 85, O2SAT 10 ON VENT TO HARINI. FRANSISCO CATH INTACT AND PATENT PICC I TREVER INTACT AND PATENT. PT REMAINS INBED. TUBE FEED ON HOLD PER PROTOCOL. PT HAD NO BM ON DAY SHIFT.
[2022-03-13] MEDS ORDERED: IV NS 1000 ML 1,000 ML IV ONE (21:00)
--- NOTE | 2022-03-13 22:51 | NUR ---
REPORT WAS CAALLED TO [facility] TO NURSE HARINDER. EMT CAME AND ESCORT THE PATIENT . aLL MEDICATION GIVEN. bLOOD PRESSURE 85/55 MD. IS AWARE, BOLUS OF 5OOML OF NORMAL SALINE IV WAS GIVEN ALING WITH PROENTINE. ALL CHART WAS COPIED AND GIVEN TO THE EMS TRANSPORTER
== END 2022-03-13 23:45 | disposition short-term general hospital (02) | DRG 53 ==
LOC: ER 20:26 → TELE3 03-09 00:36 → TRANSITION 03-09 01:20
PROVIDERS: ADMIT Internal Medicine; ATTEND Student in an Organized Health Care Education/Training Program
PROC: 02HV33Z Insertion of Infusion Device into Superior Vena Cava, Percutaneous Approach (ICD-10-PCS; principal; 2022-03-09)
PROC: B548ZZA Ultrasonography of Superior Vena Cava, Guidance (ICD-10-PCS; principal; 2022-03-09)
PROC: 5A1955Z Respiratory Ventilation, Greater than 96 Consecutive Hours (ICD-10-PCS; principal; 2022-03-09)
DX: G40.909 Epilepsy, unspecified, not intractable, without status epilepticus (principal); J69.0 Pneumonitis due to inhalation of food and vomit; G92.8 Other toxic encephalopathy; J15.9 Unspecified bacterial pneumonia; E43 Unspecified severe protein-calorie malnutrition; B02.7 Disseminated zoster; D68.59 Other primary thrombophilia; J96.11 Chronic respiratory failure with hypoxia; E27.40 Unspecified adrenocortical insufficiency; H70.92 Unspecified mastoiditis, left ear; Z93.0 Tracheostomy status; Z99.11 Dependence on respirator [ventilator] status; D53.9 Nutritional anemia, unspecified; I10 Essential (primary) hypertension; N39.0 Urinary tract infection, site not specified; Z93.1 Gastrostomy status; R13.10 Dysphagia, unspecified; Z20.822 Contact with and (suspected) exposure to COVID-19; Z74.01 Bed confinement status; Z87.820 Personal history of traumatic brain injury; Z98.2 Presence of cerebrospinal fluid drainage device; Z68.23 Body mass index [BMI] 23.0-23.9, adult; V89.2XXS Person injured in unspecified motor-vehicle accident, traffic, sequela; L73.9 Follicular disorder, unspecified; R00.1 Bradycardia, unspecified
CPT/HCPCS: 36415; 36600; 70450; 71045; 83605; 83735; 84100; 84443; 84484; 85025; 87040; 87070; 87077; 87086; 87400; 93005; 94002; 94003; 94640; 94664; 95819; A4663; G0378; J0133; J1165; J1953; J2060; J2185; J2543; J3370; J3475; J3480; J3490; J3590; J7040; J7050; J7060; J8597; U0003

== ENCOUNTER 2023-06-04 11:50 | Inpatient (IN) | payer BC ==
[~2023-06-04] VITALS: Ht 172.7 cm; Wt 87.7 kg
[~2023-06-04 11:50] MED LIST: ACET-2154 GT; AMLO-212 GT; AMOX-430 GT; BISA10SU61 RC; CHLO473M3 PO; CLON0.1T PO; DOCU100C36 GT; ENOX40DI SUBCUT; FERR325T28 GT; FLUD0.1T GT; IPRA12.9 INH; IPRA4AER IH; LEVE1000 GT; METO-295 GT; MIDO5TAB5 GT; MULT-594 GT; MV-M1TAB18 GT; NA P133E RC; PANT40TA2 GT
[2023-06-04] MEDS ORDERED: LORAZEPAM 2 MG/1 ML VIAL ONE (12:10)
[2023-06-04] MEDS ORDERED: levETIRAcetam 500 MG/5 ML VIAL IV ONE (12:10)
[2023-06-04] MEDS ORDERED: levETIRAcetam IV 1,000 MG in IV DEXTROSE 5% 100 ML IV ONE (12:15)
[2023-06-04] MEDS ORDERED: LORAZEPAM 2 MG/1 ML VIAL IV ONE (12:15)
[2023-06-04] MEDS ORDERED: ACET-3117 PO (12:48)
[2023-06-04] MEDS ORDERED: CHLO473M5 PO (12:48)
[2023-06-04] MEDS ORDERED: POLY250017 GT (12:48)
[2023-06-04] MEDS ORDERED: IPRA4AER IH (12:48)
[2023-06-04] MEDS ORDERED: MULT-213 GT (12:48)
[2023-06-04] MEDS ORDERED: ACET-73 GT (12:48)
[2023-06-04] MEDS ORDERED: BISA10SU61 RC (12:48)
[2023-06-04] MEDS ORDERED: ASCO500C18 GT (12:48)
[2023-06-04] MEDS ORDERED: LEVETIRACETAM GT (12:48)
[2023-06-04] MEDS ORDERED: FERROUS SULFATE GT (12:48)
[2023-06-04] MEDS ORDERED: DOCU-141 GT (12:48)
[2023-06-04] MEDS ORDERED: MIDO5TAB5 GT (12:48)
[2023-06-04] MEDS ORDERED: NA P133E RC (12:48)
[2023-06-04] MEDS ORDERED: MAGN400O6 PO (12:48)
[2023-06-04] MEDS ORDERED: VITAMIN D3 GT (12:48)
[2023-06-04] MEDS ORDERED: PANT40TA49 GT (12:48)
[2023-06-04] MEDS ORDERED: CRAN3875 GT (12:48)
[2023-06-04 12:58] LABS: BASOPHILS % (AUTO) 0.8 % (0.0-2.0); EOSINOPHILS # (AUTO) 0.4 K/uL (0.0-0.7); EOSINOPHILS % (AUTO) 6.2 % (0.0-7.0); HEMATOCRIT 31.9 % (31.2-41.9); HEMOGLOBIN 10.3 g/dL (10.9-14.3); LYMPHOCYTES # (AUTO) 1.8 K/uL (0.8-4.8); LYMPHOCYTES % (AUTO) 31.4 % (20.5-51.5); MEAN CORPUSCULAR HEMOGLOBIN 28.2 uug (24.7-32.8); MEAN CORPUSCULAR HGB CONC 32 g/dL (32.3-35.6); MEAN CORPUSCULAR VOLUME 87.1 fL (75.5-95.3); MONOCYTES # (AUTO) 0.3 K/uL (0.1-1.30); MONOCYTES % (AUTO) 5.4 % (0.0-11.0); NEUTROPHILS # (AUTO) 3.3 K/uL (1.8-8.9); NEUTROPHILS % (AUTO) 56.2 % (38.5-71.5); PLATELET COUNT (AUTO) 251 K/uL (179-408); RED BLOOD CELL COUNT(AUTO) 3.66 MIL/uL (3.63-4.92); RED CELL DISTRIBUTION WIDTH 15.3 % (12.3-17.7); WHITE BLOOD COUNT (AUTO) 5.8 K/uL (3.8-11.8)
[2023-06-04 13:14] LABS: *BILIRUBIN,URIN NEGATIVE (NEGATIVE); *BLOOD, URINE NEGATIVE (NEGATIVE); *CLARITY,URINE CLEAR (CLEAR); *COLOR,URINE YELLOW (YELLOW); *KETONES,URINE NEGATIVE (NEGATIVE); *PROTEIN,URINE NEGATIVE (NEGATIVE); *UROBILINOGEN,URINE 0.2 E.U./dl (NORMAL); LEUKOCYTE ESTERASE ,URINE NEGATIVE (NEGATIVE); NITRITE, URINE NEGATIVE (NEGATIVE); PH,URINE 7.5 (5.0-8.0); UGLUCOSE NEGATIVE (NEGATIVE)
[2023-06-04 13:16] LABS: DIFFERENTIAL COMMENT 1
[2023-06-04 13:23] LABS: CALCIUM 10.2 mg/dL (8.5-10.1); CARBON DIOXIDE 29 mmol/L (21-32); CHLORIDE 102 mmol/L (98-107); CREATININE 0.4 mg/dL (0.6-1.3); GLUCOSE 135 mg/dL (74-106); POTASSIUM 4.1 mmol/L (3.5-5.1); SODIUM SERUM 136 mmol/L (136-145); UREA NITROGEN, BLOOD 12 mg/dL (7-18)
[2023-06-04 13:32] LABS: ALANINE AMINOTRANSFERASE 36 U/L (14-59); ALBUMIN 3.2 g/dL (3.4-5.0); ALKALINE PHOSPHATASE 162 U/L (50-136); ASPARTATE AMINOTRANSFERASE 9 U/L (15-37); BILIRUBIN,DIRECT 0.1 mg/dL (0.0-0.2); BILIRUBIN,TOTAL 0.2 mg/dL (0.2-1.0); TOTAL PROTEIN, SERUM 8.7 g/dL (6.4-8.2)
[2023-06-04] MEDS ORDERED: levETIRAcetam 250 MG TABLET PO SCH ×2 (20:30→21:00)
[2023-06-04] MEDS ORDERED: BISACODYL 10 MG SUPP.RECT RC PRN (20:30)
[2023-06-04] MEDS ORDERED: BISACODYL 10 MG SUPP.RECT RC SCH (20:30)
[2023-06-04] MEDS ORDERED: PHENYTOIN SODIUM IV ONE (20:45)
[2023-06-04] MEDS ORDERED: NORMAL SALINE IV ONE (20:45)
[2023-06-04] MEDS ORDERED: PHENYTOIN SODIUM EXTENDED 100 MG CAPSULE.SA PO SCH (22:00)
[2023-06-04 23:43] VITALS: BP 124/79; TEMP 97.3; O2SAT 100
[2023-06-05] MEDS: MIDODRINE HCL 5 MG TABLET GT SCH ×2 (00:07→09:00)
[2023-06-05] MEDS: CHLORHEXIDINE GLUCONATE 15 ML MOUTHWASH MM SCH ×3 (00:10→16:31)
[2023-06-05] MEDS ORDERED: PHENYTOIN SODIUM 250 MG/5 ML VIAL IV ONE (00:17)
[2023-06-05] MEDS: PHENYTOIN 100 MG/4 ML UDC GT SCH ×4 (00:50→21:04)
[2023-06-05 04:25] VITALS: BP 106/65; TEMP 97.2; O2SAT 99
[2023-06-05 08:00] VITALS: BP 115/73; TEMP 98.2; O2SAT 96
[2023-06-05] MEDS: MULTIVIT, IRON, MIN NO. 8, FA TABLET GT SCH (08:59)
[2023-06-05] MEDS: ASCORBIC ACID 500 MG TABLET PO SCH (08:59)
[2023-06-05] MEDS ORDERED: Medication Not On Formulary EA (Mv-Mn/Iron/FA/Herbal Cmplx#190 (Vitamin D3 Complete Capl GT SCH (09:00)
[2023-06-05] MEDS ORDERED: FLUDROCORTISONE ACETATE 0.1 MG TABLET GT SCH (09:00)
[2023-06-05] MEDS ORDERED: MULTIVITAMINS 5 ML LIQUID UDC GT SCH (09:00)
[2023-06-05] MEDS ORDERED: AMLODIPINE 5 MG TABLET GT SCH (09:00)
[2023-06-05] MEDS: levETIRAcetam 500 MG/5 ML LIQUID UDC GT SCH ×2 (09:06→20:24)
[2023-06-05] MEDS: DOCUSATE SODIUM 100 MG/10 ML LIQUID UDC GT SCH (09:06)
[2023-06-05] MEDS ORDERED: CHOL100045 PO (09:37)
[2023-06-05 09:51] LABS: *URINE HCG, QUAL NEGATIVE (NEGATIVE)
[2023-06-05] MEDS ORDERED: LEVE100S GT (10:14)
[2023-06-05] MEDS ORDERED: JEVITY 1.2 1000 ML LIQUID GT PRN (10:45)
[2023-06-05] MEDS ORDERED: MIDODRINE HCL 5 MG TABLET GT PRN (10:49)
[2023-06-05] MEDS ORDERED: FERR220S16 GT (11:07)
[2023-06-05] MEDS ORDERED: PANT40SU2 GT (11:11)
[2023-06-05 11:18] VITALS: BP 113/75; TEMP 98.4; O2SAT 98
[2023-06-05] MEDS ORDERED: REMEDY ESSENTIAL ZINC PASTE 113 GM TOP PRN (11:30)
[2023-06-05 15:04] VITALS: BP 105/64; TEMP 98.2; O2SAT 92
[2023-06-05] MEDS ORDERED: PHENYTOIN SODIUM IV 500 MG in IV NORMAL SALINE 50 ML IV SCH (16:45)
[2023-06-05] MEDS ORDERED: LORAZEPAM 2 MG/1 ML VIAL IV ONE (17:00)
[2023-06-05] MEDS ORDERED: LORAZEPAM 2 MG/1 ML VIAL IV PRN (17:00)
[2023-06-05] MEDS ORDERED: PHENYTOIN SODIUM IV 500 MG in IV NORMAL SALINE 50 ML IV ONE (17:00)
[2023-06-05] MEDS: NEOMY/BACITRAC/POLYMI OINT 28.35 GM TUBE TOP SCH (18:14)
[2023-06-05 20:00] VITALS: BP 98/57; TEMP 97.3; O2SAT 100
[2023-06-05] MEDS: REMEDY ESSENTIAL ZINC PASTE 113 GM TOP SCH (20:25)
[2023-06-05] MEDS: MIDODRINE HCL 5 MG TABLET GT PRN (21:20)
[2023-06-06] VITALS: BP 112/73; TEMP 97.5; O2SAT 94
[2023-06-06 04:00] VITALS: BP 96/71; TEMP 97.5; O2SAT 100
[2023-06-06] MEDS: PHENYTOIN 100 MG/4 ML UDC GT SCH ×3 (05:30→21:47)
[2023-06-06] MEDS ORDERED: LORAZEPAM 2 MG/1 ML VIAL IV PRN (06:00)
[2023-06-06 07:51] VITALS: BP 113/71; TEMP 97.5; O2SAT 100
[2023-06-06 08:07] LABS: ABG BASE EXCESS -0.9 mmol/L (-2.0-2.0); ABG HCO3 22.5 mmol/L (22.0-26.0); ABG PCO2 33.2 mmHg (35.0-48.0); ABG PH 7.449 (7.340-7.440); ABG PO2 155.8 mmHg (75.0-100.0); ABG SITE LEFT RADIAL; ABG TOTAL HEMOGLOBIN 12.4 G/dL (12.0-16.0); AaDO2 99.1 mmHg; COHb 0.2 % (0.0-3.9); MetHb 0.3 % (0.0-1.5); O2Hb 98.7 % (94.0-97.0); VT, ABG 450 mL
[2023-06-06] MEDS: DOCUSATE SODIUM 100 MG/10 ML LIQUID UDC GT SCH (09:57)
[2023-06-06] MEDS: levETIRAcetam 500 MG/5 ML LIQUID UDC GT SCH (09:57)
[2023-06-06] MEDS: MULTIVIT, IRON, MIN NO. 8, FA TABLET GT SCH (09:57)
[2023-06-06] MEDS: ASCORBIC ACID 500 MG TABLET PO SCH (09:58)
[2023-06-06] MEDS: NEOMY/BACITRAC/POLYMI OINT 28.35 GM TUBE TOP SCH ×2 (09:58→17:24)
[2023-06-06] MEDS: REMEDY ESSENTIAL ZINC PASTE 113 GM TOP SCH ×2 (09:58→20:22)
[2023-06-06] MEDS: CHLORHEXIDINE GLUCONATE 15 ML MOUTHWASH MM SCH ×2 (10:02→17:23)
[2023-06-06 10:54] VITALS: BP 126/69; TEMP 97.7; O2SAT 98
[2023-06-06 15:23] VITALS: BP 105/72; TEMP 98.2; O2SAT 98
[2023-06-06] MEDS ORDERED: LACOSAMIDE 200 MG in IV NORMAL SALINE 100 ML IV ONE (15:30)
[2023-06-06] MEDS: levETIRAcetam IV 2,000 MG in IV DEXTROSE 5% 100 ML IV SCH (20:22)
[2023-06-06 21:37] VITALS: BP 104/59; TEMP 98.2; O2SAT 99
[2023-06-06] MEDS: LACOSAMIDE 200 MG in IV NORMAL SALINE 100 ML IV SCH (23:28)
[2023-06-07] VITALS (15 sets, daily range): BP systolic 90–106; BP diastolic 54–71; TEMP 95–100; O2SAT 99–100
[2023-06-07] MEDS: PHENYTOIN 100 MG/4 ML UDC GT SCH ×3 (05:16→21:56)
[2023-06-07] MEDS ORDERED: JEVITY 1.2 1000 ML LIQUID GT PRN (07:15)
[2023-06-07] MEDS: levETIRAcetam IV 2,000 MG in IV DEXTROSE 5% 100 ML IV SCH ×2 (08:11→21:58)
[2023-06-07] MEDS: CHLORHEXIDINE GLUCONATE 15 ML MOUTHWASH MM SCH ×2 (08:42→21:55)
[2023-06-07] MEDS: LACOSAMIDE 200 MG in IV NORMAL SALINE 100 ML IV SCH ×2 (08:58→21:00)
[2023-06-07] MEDS: ASCORBIC ACID 500 MG TABLET PO SCH (09:02)
[2023-06-07] MEDS: REMEDY ESSENTIAL ZINC PASTE 113 GM TOP SCH ×2 (09:02→21:57)
[2023-06-07] MEDS: MULTIVIT, IRON, MIN NO. 8, FA TABLET GT SCH (09:02)
[2023-06-07] MEDS: DOCUSATE SODIUM 100 MG/10 ML LIQUID UDC GT SCH (09:02)
[2023-06-07] MEDS: NEOMY/BACITRAC/POLYMI OINT 28.35 GM TUBE TOP SCH ×2 (09:02→21:55)
[2023-06-07] MEDS: MIDAZOLAM HCL 50 MG in IV NORMAL SALINE 40 ML IV PRN (12:51)
[2023-06-08] VITALS (31 sets, daily range): BP systolic 83–116; BP diastolic 55–75; TEMP 95–98.3; O2SAT 100
[2023-06-08 05:35] LABS: BASOPHILS # (AUTO) 0.1 K/UL (0.0-0.2); BASOPHILS % (AUTO) 1.1 % (0.0-2.0); EOSINOPHILS # (AUTO) 0.4 K/uL (0.0-0.7); EOSINOPHILS % (AUTO) 5.2 % (0.0-7.0); HEMOGLOBIN 10.2 g/dL (10.9-14.3); LYMPHOCYTES # (AUTO) 2.3 K/uL (0.8-4.8); LYMPHOCYTES % (AUTO) 29.6 % (20.5-51.5); MEAN CORPUSCULAR HEMOGLOBIN 28.2 uug (24.7-32.8); MEAN CORPUSCULAR HGB CONC 33 g/dL (32.3-35.6); MONOCYTES # (AUTO) 0.5 K/uL (0.1-1.30); MONOCYTES % (AUTO) 6.5 % (0.0-11.0); NEUTROPHILS # (AUTO) 4.5 K/uL (1.8-8.9); NEUTROPHILS % (AUTO) 57.6 % (38.5-71.5); PLATELET COUNT (AUTO) 233 K/uL (179-408); RED CELL DISTRIBUTION WIDTH 15.7 % (12.3-17.7); WHITE BLOOD COUNT (AUTO) 7.8 K/uL (3.8-11.8)
[2023-06-08 05:39] LABS: DIFFERENTIAL COMMENT 1
[2023-06-08 05:43] LABS: CARBON DIOXIDE 24 mmol/L (21-32); CHLORIDE 105 mmol/L (98-107); CREATININE 0.5 mg/dL (0.6-1.3); GLUCOSE 120 mg/dL (74-106); MAGNESIUM 1.9 mg/dL (1.8-2.4); PHOSPHOROUS 4.3 mg/dL (2.5-4.9); POTASSIUM 3.6 mmol/L (3.5-5.1); SODIUM SERUM 141 mmol/L (136-145); UREA NITROGEN, BLOOD 8 mg/dL (7-18)
[2023-06-08 05:48] LABS: CALCIUM 9.9 mg/dL (8.5-10.1)
[2023-06-08] MEDS: PHENYTOIN 100 MG/4 ML UDC GT SCH ×3 (06:41→21:51)
[2023-06-08] MEDS: LACOSAMIDE 200 MG in IV NORMAL SALINE 100 ML IV SCH ×2 (08:03→21:55)
[2023-06-08] MEDS: MULTIVIT, IRON, MIN NO. 8, FA TABLET GT SCH (08:07)
[2023-06-08] MEDS: CHLORHEXIDINE GLUCONATE 15 ML MOUTHWASH MM SCH ×2 (08:07→17:10)
[2023-06-08] MEDS: ASCORBIC ACID 500 MG TABLET PO SCH (08:07)
[2023-06-08] MEDS: DOCUSATE SODIUM 100 MG/10 ML LIQUID UDC GT SCH (08:08)
[2023-06-08] MEDS: REMEDY ESSENTIAL ZINC PASTE 113 GM TOP SCH ×2 (08:29→21:50)
[2023-06-08] MEDS: NEOMY/BACITRAC/POLYMI OINT 28.35 GM TUBE TOP SCH ×2 (08:31→17:10)
[2023-06-08] MEDS: levETIRAcetam IV 2,000 MG in IV DEXTROSE 5% 100 ML IV SCH ×2 (08:51→21:51)
[2023-06-08] MEDS: MIDAZOLAM HCL 50 MG in IV NORMAL SALINE 40 ML IV PRN (08:53)
[2023-06-09] VITALS (22 sets, daily range): BP systolic 89–105; BP diastolic 54–73; TEMP 95.6–98.1; O2SAT 99–100
[2023-06-09] MEDS: PHENYTOIN 100 MG/4 ML UDC GT SCH ×3 (04:28→21:12)
[2023-06-09] MEDS: levETIRAcetam IV 2,000 MG in IV DEXTROSE 5% 100 ML IV SCH (08:36)
[2023-06-09] MEDS: LACOSAMIDE 200 MG in IV NORMAL SALINE 100 ML IV SCH (08:36)
[2023-06-09] MEDS: MULTIVIT, IRON, MIN NO. 8, FA TABLET GT SCH (08:58)
[2023-06-09] MEDS: CHLORHEXIDINE GLUCONATE 15 ML MOUTHWASH MM SCH ×2 (08:58→15:51)
[2023-06-09] MEDS: ASCORBIC ACID 500 MG TABLET PO SCH (08:58)
[2023-06-09] MEDS: REMEDY ESSENTIAL ZINC PASTE 113 GM TOP SCH ×2 (09:01→23:40)
[2023-06-09] MEDS: NEOMY/BACITRAC/POLYMI OINT 28.35 GM TUBE TOP SCH ×2 (09:01→16:01)
[2023-06-09] MEDS: MIDODRINE HCL 5 MG TABLET GT PRN (12:12)
[2023-06-09] MEDS: DOCUSATE SODIUM 100 MG/10 ML LIQUID UDC GT SCH (15:59)
[2023-06-09] MEDS: CEFTRIAXONE 1 G in IV DEXTROSE 5% 50 ML IV SCH (16:00)
[2023-06-09] MEDS: levETIRAcetam 500 MG/5 ML LIQUID UDC GT SCH (21:11)
[2023-06-09] MEDS: LACOSAMIDE 100 MG/10 ML UDC GT SCH (21:12)
[2023-06-10] VITALS (24 sets, daily range): BP systolic 90–110; BP diastolic 43–80; TEMP 93.8–100.8; O2SAT 98–100
[2023-06-10] MEDS: JEVITY 1.2 1000 ML LIQUID GT PRN (04:54)
[2023-06-10 05:00] LABS: BASOPHILS # (AUTO) 0.1 K/UL (0.0-0.2); BASOPHILS % (AUTO) 0.8 % (0.0-2.0); EOSINOPHILS # (AUTO) 0.4 K/uL (0.0-0.7); EOSINOPHILS % (AUTO) 6.3 % (0.0-7.0); HEMATOCRIT 32.1 % (31.2-41.9); HEMOGLOBIN 10.5 g/dL (10.9-14.3); MEAN CORPUSCULAR HEMOGLOBIN 28.1 uug (24.7-32.8); MEAN CORPUSCULAR HGB CONC 33 g/dL (32.3-35.6); MEAN CORPUSCULAR VOLUME 85.7 fL (75.5-95.3); MONOCYTES # (AUTO) 0.4 K/uL (0.1-1.30); MONOCYTES % (AUTO) 6.6 % (0.0-11.0); NEUTROPHILS # (AUTO) 3.2 K/uL (1.8-8.9); NEUTROPHILS % (AUTO) 53.3 % (38.5-71.5); PLATELET COUNT (AUTO) 243 K/uL (179-408); RED BLOOD CELL COUNT(AUTO) 3.75 MIL/uL (3.63-4.92); RED CELL DISTRIBUTION WIDTH 15.9 % (12.3-17.7); WHITE BLOOD COUNT (AUTO) 6.1 K/uL (3.8-11.8)
[2023-06-10 05:11] LABS: DIFFERENTIAL COMMENT 1
[2023-06-10 05:22] LABS: CALCIUM 9.3 mg/dL (8.5-10.1); CARBON DIOXIDE 25 mmol/L (21-32); CHLORIDE 103 mmol/L (98-107); CREATININE 0.4 mg/dL (0.6-1.3); GLUCOSE 125 mg/dL (74-106); MAGNESIUM 1.6 mg/dL (1.8-2.4); POTASSIUM 4.1 mmol/L (3.5-5.1); SODIUM SERUM 138 mmol/L (136-145); UREA NITROGEN, BLOOD 9 mg/dL (7-18)
[2023-06-10 05:55] LABS: ABG BASE EXCESS -1.8 mmol/L (-2.0-2.0); ABG HCO3 22.9 mmol/L (22.0-26.0); ABG PH 7.387 (7.340-7.440); ABG SITE LEFT RADIAL; ABG TOTAL HEMOGLOBIN 12.3 G/dL (12.0-16.0); AaDO2 98.1 mmHg; COHb 0.1 % (0.0-3.9); MetHb 0.3 % (0.0-1.5); O2Hb 97.7 % (94.0-97.0); VT, ABG 450 mL
[2023-06-10] MEDS: PHENYTOIN 100 MG/4 ML UDC GT SCH ×3 (06:38→22:09)
[2023-06-10] MEDS: PROTEIN SUPPLEMENT (PROSTAT) 30 ML LIQUID GT SCH (08:49)
[2023-06-10] MEDS: DOCUSATE SODIUM 100 MG/10 ML LIQUID UDC GT SCH (08:49)
[2023-06-10] MEDS: CHLORHEXIDINE GLUCONATE 15 ML MOUTHWASH MM SCH ×2 (08:50→16:50)
[2023-06-10] MEDS: ASCORBIC ACID 500 MG TABLET PO SCH (08:50)
[2023-06-10] MEDS: levETIRAcetam 500 MG/5 ML LIQUID UDC GT SCH ×2 (08:50→22:04)
[2023-06-10] MEDS: MULTIVIT, IRON, MIN NO. 8, FA TABLET GT SCH (08:50)
[2023-06-10] MEDS: NEOMY/BACITRAC/POLYMI OINT 28.35 GM TUBE TOP SCH ×2 (08:52→16:52)
[2023-06-10] MEDS: REMEDY ESSENTIAL ZINC PASTE 113 GM TOP SCH ×2 (08:54→22:00)
[2023-06-10] MEDS: LACOSAMIDE 100 MG/10 ML UDC GT SCH ×2 (10:55→22:05)
[2023-06-10] MEDS: MIDAZOLAM HCL 50 MG in IV NORMAL SALINE 40 ML IV PRN (11:58)
[2023-06-10] MEDS ORDERED: MAGNESIUM OXIDE 400 MG TABLET GT ONE (15:30)
[2023-06-10] MEDS: CEFTRIAXONE 1 G in IV DEXTROSE 5% 50 ML IV SCH (16:50)
[2023-06-11] VITALS (24 sets, daily range): BP systolic 91–112; BP diastolic 55–83; TEMP 97.5–99.8; O2SAT 96–100
[2023-06-11 05:08] LABS: BASOPHILS # (AUTO) 0.1 K/UL (0.0-0.2); BASOPHILS % (AUTO) 1.5 % (0.0-2.0); EOSINOPHILS # (AUTO) 0.3 K/uL (0.0-0.7); EOSINOPHILS % (AUTO) 2.8 % (0.0-7.0); HEMATOCRIT 33.5 % (31.2-41.9); LYMPHOCYTES # (AUTO) 2.5 K/uL (0.8-4.8); MEAN CORPUSCULAR HEMOGLOBIN 28.3 uug (24.7-32.8); MEAN CORPUSCULAR HGB CONC 33 g/dL (32.3-35.6); MEAN CORPUSCULAR VOLUME 85.8 fL (75.5-95.3); MONOCYTES # (AUTO) 0.5 K/uL (0.1-1.30); MONOCYTES % (AUTO) 5.4 % (0.0-11.0); NEUTROPHILS # (AUTO) 6.6 K/uL (1.8-8.9); NEUTROPHILS % (AUTO) 65.3 % (38.5-71.5); PLATELET COUNT (AUTO) 274 K/uL (179-408); RED BLOOD CELL COUNT(AUTO) 3.91 MIL/uL (3.63-4.92); RED CELL DISTRIBUTION WIDTH 15.7 % (12.3-17.7); WHITE BLOOD COUNT (AUTO) 10.1 K/uL (3.8-11.8)
[2023-06-11 05:13] LABS: ABG BASE EXCESS -0.6 mmol/L (-2.0-2.0); ABG PCO2 39.2 mmHg (35.0-48.0); ABG PH 7.404 (7.340-7.440); ABG PO2 102.7 mmHg (75.0-100.0); ABG SITE LEFT RADIAL; ABG TOTAL HEMOGLOBIN 11.6 G/dL (12.0-16.0); AaDO2 97.7 mmHg; COHb 0.3 % (0.0-3.9); MetHb 0.3 % (0.0-1.5); O2Hb 97.2 % (94.0-97.0); VT, ABG 450 mL
[2023-06-11 05:16] LABS: DIFFERENTIAL COMMENT 1
[2023-06-11 05:20] LABS: CALCIUM 9.3 mg/dL (8.5-10.1); CARBON DIOXIDE 25 mmol/L (21-32); CHLORIDE 100 mmol/L (98-107); CREATININE 0.5 mg/dL (0.6-1.3); GLUCOSE 143 mg/dL (74-106); MAGNESIUM 1.7 mg/dL (1.8-2.4); PHOSPHOROUS 4.7 mg/dL (2.5-4.9); POTASSIUM 3.8 mmol/L (3.5-5.1); SODIUM SERUM 136 mmol/L (136-145); UREA NITROGEN, BLOOD 9 mg/dL (7-18)
[2023-06-11] MEDS: PHENYTOIN 100 MG/4 ML UDC GT SCH ×3 (05:23→20:12)
[2023-06-11] MEDS ORDERED: MAGNESIUM OXIDE 400 MG TABLET GT ONE (09:30)
[2023-06-11] MEDS: PROTEIN SUPPLEMENT (PROSTAT) 30 ML LIQUID GT SCH (09:35)
[2023-06-11] MEDS: CHLORHEXIDINE GLUCONATE 15 ML MOUTHWASH MM SCH ×2 (09:35→16:35)
[2023-06-11] MEDS: DOCUSATE SODIUM 100 MG/10 ML LIQUID UDC GT SCH (09:35)
[2023-06-11] MEDS: levETIRAcetam 500 MG/5 ML LIQUID UDC GT SCH ×2 (09:36→20:11)
[2023-06-11] MEDS: ASCORBIC ACID 500 MG TABLET PO SCH (09:36)
[2023-06-11] MEDS: LACOSAMIDE 100 MG/10 ML UDC GT SCH ×2 (09:36→20:11)
[2023-06-11] MEDS: MULTIVIT, IRON, MIN NO. 8, FA TABLET GT SCH (09:38)
[2023-06-11] MEDS: REMEDY ESSENTIAL ZINC PASTE 113 GM TOP SCH ×2 (09:39→20:13)
[2023-06-11] MEDS: NEOMY/BACITRAC/POLYMI OINT 28.35 GM TUBE TOP SCH ×2 (09:40→16:34)
[2023-06-11] MEDS: MIDODRINE HCL 5 MG TABLET GT PRN (10:19)
[2023-06-11] MEDS: CEFTRIAXONE 1 G in IV DEXTROSE 5% 50 ML IV SCH (16:32)
[2023-06-11] MEDS ORDERED: MAGNESIUM SULFATE/D5W 100 ML IV SCH (17:30)
[2023-06-12] VITALS (17 sets, daily range): BP systolic 89–114; BP diastolic 57–81; TEMP 97.5–98.1; O2SAT 95–100
[2023-06-12 05:17] LABS: BASOPHILS # (AUTO) 0.1 K/UL (0.0-0.2); BASOPHILS % (AUTO) 0.9 % (0.0-2.0); EOSINOPHILS # (AUTO) 0.3 K/uL (0.0-0.7); EOSINOPHILS % (AUTO) 2.6 % (0.0-7.0); HEMOGLOBIN 11.2 g/dL (10.9-14.3); LYMPHOCYTES # (AUTO) 2.4 K/uL (0.8-4.8); LYMPHOCYTES % (AUTO) 19.4 % (20.5-51.5); MEAN CORPUSCULAR HEMOGLOBIN 28.1 uug (24.7-32.8); MEAN CORPUSCULAR HGB CONC 33 g/dL (32.3-35.6); MEAN CORPUSCULAR VOLUME 85.4 fL (75.5-95.3); MONOCYTES # (AUTO) 0.6 K/uL (0.1-1.30); MONOCYTES % (AUTO) 4.7 % (0.0-11.0); NEUTROPHILS % (AUTO) 72.4 % (38.5-71.5); PLATELET COUNT (AUTO) 267 K/uL (179-408); RED BLOOD CELL COUNT(AUTO) 3.98 MIL/uL (3.63-4.92); RED CELL DISTRIBUTION WIDTH 15.7 % (12.3-17.7); WHITE BLOOD COUNT (AUTO) 12.5 K/uL (3.8-11.8)
[2023-06-12 05:22] LABS: DIFFERENTIAL COMMENT 1
[2023-06-12 05:29] LABS: ABG BASE EXCESS 1.8 mmol/L (-2.0-2.0); ABG HCO3 26.1 mmol/L (22.0-26.0); ABG PCO2 39.7 mmHg (35.0-48.0); ABG PH 7.435 (7.340-7.440); ABG PO2 98.7 mmHg (75.0-100.0); ABG TOTAL HEMOGLOBIN 12.4 G/dL (12.0-16.0); AaDO2 97.7 mmHg; COHb 0.2 % (0.0-3.9); MetHb 0.4 % (0.0-1.5); O2Hb 97.1 % (94.0-97.0); VT, ABG 450 mL
[2023-06-12 05:49] LABS: CALCIUM 9.5 mg/dL (8.5-10.1); CARBON DIOXIDE 26 mmol/L (21-32); CHLORIDE 100 mmol/L (98-107); CREATININE 0.5 mg/dL (0.6-1.3); GLUCOSE 161 mg/dL (74-106); MAGNESIUM 1.6 mg/dL (1.8-2.4); PHOSPHOROUS 4.2 mg/dL (2.5-4.9); POTASSIUM 3.9 mmol/L (3.5-5.1); SODIUM SERUM 137 mmol/L (136-145); UREA NITROGEN, BLOOD 10 mg/dL (7-18)
[2023-06-12] MEDS: PHENYTOIN 100 MG/4 ML UDC GT SCH ×3 (06:01→21:06)
[2023-06-12] MEDS: CHLORHEXIDINE GLUCONATE 15 ML MOUTHWASH MM SCH ×2 (09:00→17:00)
[2023-06-12] MEDS: LACOSAMIDE 100 MG/10 ML UDC GT SCH ×2 (09:34→21:05)
[2023-06-12] MEDS: MULTIVIT, IRON, MIN NO. 8, FA TABLET GT SCH (09:37)
[2023-06-12] MEDS: ASCORBIC ACID 500 MG TABLET PO SCH (09:37)
[2023-06-12] MEDS: DOCUSATE SODIUM 100 MG/10 ML LIQUID UDC GT SCH (09:37)
[2023-06-12] MEDS: levETIRAcetam 500 MG/5 ML LIQUID UDC GT SCH ×2 (09:38→21:05)
[2023-06-12] MEDS: REMEDY ESSENTIAL ZINC PASTE 113 GM TOP SCH ×2 (09:39→21:05)
[2023-06-12] MEDS: NEOMY/BACITRAC/POLYMI OINT 28.35 GM TUBE TOP SCH ×2 (09:41→16:55)
[2023-06-12] MEDS: MAGNESIUM SULFATE/D5W 100 ML IV SCH ×2 (10:32→14:07)
[2023-06-12] MEDS: PROTEIN SUPPLEMENT (PROSTAT) 30 ML LIQUID GT SCH (10:49)
[2023-06-12] MEDS: JEVITY 1.2 1000 ML LIQUID GT PRN (11:54)
[2023-06-12] MEDS: CEFTRIAXONE 1 G in IV DEXTROSE 5% 50 ML IV SCH (16:54)
[2023-06-13] VITALS: BP 107/72; TEMP 97.4; O2SAT 100
[2023-06-13 04:00] VITALS: BP 118/72; TEMP 97.9; O2SAT 100
[2023-06-13] MEDS: PHENYTOIN 100 MG/4 ML UDC GT SCH ×2 (05:26→12:48)
[2023-06-13 05:54] LABS: ABG BASE EXCESS 0.2 mmol/L (-2.0-2.0); ABG HCO3 23.3 mmol/L (22.0-26.0); ABG PCO2 32.7 mmHg (35.0-48.0); ABG PH 7.471 (7.340-7.440); ABG PO2 114.8 mmHg (75.0-100.0); ABG SITE RIGHT RADIAL; ABG TOTAL HEMOGLOBIN 11.7 G/dL (12.0-16.0); AaDO2 98.5 mmHg; COHb 0.1 % (0.0-3.9); MetHb 0.3 % (0.0-1.5); O2Hb 98.2 % (94.0-97.0); VT, ABG 450 mL
[2023-06-13 07:59] LABS: BASOPHILS # (AUTO) 0.1 K/UL (0.0-0.2); BASOPHILS % (AUTO) 0.8 % (0.0-2.0); EOSINOPHILS # (AUTO) 0.6 K/uL (0.0-0.7); EOSINOPHILS % (AUTO) 5.2 % (0.0-7.0); HEMATOCRIT 35.6 % (31.2-41.9); HEMOGLOBIN 11.6 g/dL (10.9-14.3); LYMPHOCYTES # (AUTO) 3.4 K/uL (0.8-4.8); LYMPHOCYTES % (AUTO) 31.3 % (20.5-51.5); MEAN CORPUSCULAR HEMOGLOBIN 28.4 uug (24.7-32.8); MEAN CORPUSCULAR HGB CONC 33 g/dL (32.3-35.6); NEUTROPHILS # (AUTO) 5.8 K/uL (1.8-8.9); NEUTROPHILS % (AUTO) 53.7 % (38.5-71.5); PLATELET COUNT (AUTO) 265 K/uL (179-408); RED BLOOD CELL COUNT(AUTO) 4.09 MIL/uL (3.63-4.92); WHITE BLOOD COUNT (AUTO) 10.9 K/uL (3.8-11.8)
[2023-06-13 08:03] LABS: DIFFERENTIAL COMMENT 1
[2023-06-13 08:17] LABS: CALCIUM 9.8 mg/dL (8.5-10.1); CARBON DIOXIDE 25 mmol/L (21-32); CHLORIDE 99 mmol/L (98-107); CREATININE 0.5 mg/dL (0.6-1.3); GLUCOSE 137 mg/dL (74-106); MAGNESIUM 1.9 mg/dL (1.8-2.4); PHOSPHOROUS 5.3 mg/dL (2.5-4.9); SODIUM SERUM 136 mmol/L (136-145); UREA NITROGEN, BLOOD 8 mg/dL (7-18)
[2023-06-13] MEDS: LACOSAMIDE 100 MG/10 ML UDC GT SCH (09:15)
[2023-06-13] MEDS: DOCUSATE SODIUM 100 MG/10 ML LIQUID UDC GT SCH (09:15)
[2023-06-13] MEDS: ASCORBIC ACID 500 MG TABLET PO SCH (09:15)
[2023-06-13] MEDS: levETIRAcetam 500 MG/5 ML LIQUID UDC GT SCH (09:16)
[2023-06-13] MEDS: MULTIVIT, IRON, MIN NO. 8, FA TABLET GT SCH (09:16)
[2023-06-13] MEDS: PROTEIN SUPPLEMENT (PROSTAT) 30 ML LIQUID GT SCH (09:16)
[2023-06-13] MEDS: REMEDY ESSENTIAL ZINC PASTE 113 GM TOP SCH (09:17)
[2023-06-13] MEDS: CHLORHEXIDINE GLUCONATE 15 ML MOUTHWASH MM SCH ×2 (09:17→16:22)
[2023-06-13] MEDS: NEOMY/BACITRAC/POLYMI OINT 28.35 GM TUBE TOP SCH ×2 (09:17→16:22)
[2023-06-13 11:34] VITALS: BP 118/74; TEMP 97.6; O2SAT 100
[2023-06-13] MEDS: JEVITY 1.2 1000 ML LIQUID GT PRN (14:47)
[2023-06-13] MEDS ORDERED: LACO10SO3 GT (15:23)
[2023-06-13] MEDS ORDERED: LEVE100S GT (15:23)
[2023-06-13] MEDS: CEFTRIAXONE 1 G in IV DEXTROSE 5% 50 ML IV SCH (16:23)
[2023-06-13 16:30] VITALS: BP 106/70; TEMP 97.5; O2SAT 100
== END 2023-06-13 17:00 | DRG 53 ==
LOC: ER 11:55 → TELE-TD3 22:33 → UNDOADMIN 22:33 → TELE3 22:33 → TELE-TD3 06-05 16:55 → CCU 06-07 11:13 → TELE3 06-12 14:55
PROVIDERS: ADMIT Nurse Practitioner Acute Care; ATTEND Nurse Practitioner Acute Care
PROC: 5A1955Z Respiratory Ventilation, Greater than 96 Consecutive Hours (ICD-10-PCS; principal; 2023-06-04)
DX: G40.901 Epilepsy, unspecified, not intractable, with status epilepticus (principal); J69.0 Pneumonitis due to inhalation of food and vomit; G92.8 Other toxic encephalopathy; R40.3 Persistent vegetative state; E43 Unspecified severe protein-calorie malnutrition; R53.2 Functional quadriplegia; R13.10 Dysphagia, unspecified; S06.9XAS Unspecified intracranial injury with loss of consciousness status unknown, sequela; R40.2432 Glasgow coma scale score 3-8, at arrival to emergency department; V03.99XS Pedestrian with other conveyance injured in collision with car, pick-up truck or van, unspecified whether traffic or nontraffic accident, sequela; J96.11 Chronic respiratory failure with hypoxia; E66.9 Obesity, unspecified; Z68.29 Body mass index [BMI] 29.0-29.9, adult; D53.9 Nutritional anemia, unspecified; Z98.2 Presence of cerebrospinal fluid drainage device; Z99.11 Dependence on respirator [ventilator] status; Z93.0 Tracheostomy status; Z93.1 Gastrostomy status; Z79.01 Long term (current) use of anticoagulants; I95.1 Orthostatic hypotension; G93.89 Other specified disorders of brain; D68.59 Other primary thrombophilia; T85.02XA Displacement of ventricular intracranial (communicating) shunt, initial encounter; I10 Essential (primary) hypertension
CPT/HCPCS: 36415; 36600; 70450; 71045; 83605; 83735; 84100; 84484; 84703; 85025; 85730; 86140; 87040; 93005; 94002; 94003; 94760; 95819; 99082-TC; A4606; A4663; A6209; A6213; G0378; J0696; J1165; J1953; J2060; J2250; J3475; J7040